=== PATIENT | male | born 1955 | race Caucasian/White ===

== ENCOUNTER → 2017-10-06 07:48 | Day surgery (SDC) | payer BC ==
[~2017-10-06 07:48] MED LIST: Diazepam TAB(*) 5 MG ONE; Heparin 2 UNITS/ML IVPREMIX* 3,000 ML IV ONE; Iohexol 350 (CONTRAST) 200 ML MDV IV ONE; Lidocaine 1% INJ* 10 MG/ML 30 ML SDV ONE; Midazolam* 1 MG/ML 10 ML VIAL (10 MG) ONE; NS 0.9% 1000 ML* 1,000 ML IV SCH; diPHENhydraMINE PO* 25 MG ONE; fentaNYL* 50 MCG/ML 2 ML VIAL (100 MCG VIAL) ONE
[2017-10-06 13:01] VITALS: BP 131/73
--- NOTE | 2017-10-07 04:49 | CATH ---
CC: Dr. Edgard Mathias, [facility] Cardiothoracic Surgery Department * CARDIAC CATHETERIZATION REPORT: DATE OF PROCEDURE: 10/06/17 - [facility] CATH PROCEDURE: Cardiac catheterization including left ventriculogram, coronary angiography. INDICATION: Mitral regurgitation, mitral valve prolapse. The patient is a 62-year-old gentleman with a history of mitral valve prolapse, who now has severe mitral regurgitation and left atrial enlargement. Cardiac catheterization was recommended prior to mitral valve repair. DESCRIPTION OF PROCEDURE: The patient was brought to the catheterization lab in a fasting state. Informed consent had been obtained prior to the procedure. All labs had been reviewed. The patient was placed supine on the catheterization table. Both femoral areas were cleaned and draped in the usual fashion. 1% lidocaine was used for local anesthesia. The right femoral artery was entered via modified Seldinger technique and a 6-Jamaican sheath introducer was placed. The patient underwent left ventriculogram and coronary angiography using a 6-Jamaican pigtail catheter, 6-Jamaican JL5 catheter, and a 6-Jamaican JR4 catheter. At the end of the procedure , an angiogram of the femoral artery demonstrated normal position and a Mynx closure device was deployed. The patient tolerated the procedure well and no complications. A total of 2.6 minutes of fluoro time was used. A total of 80 cc of Omnipaque dye was used. FINDINGS: HEMODYNAMICS: Central aortic blood pressure 112/65 with a mean of 87, left ventricular pressure 112/2 within an end-diastolic pressure of 16. LEFT VENTRICULOGRAM: Left ventricle was normal in size and systolic function, estimated ejection fraction of 65%. There was obvious mitral valve prolapse with 3 to 4+ mitral regurgitation. The aortic valve and ascending aorta appeared normal. CORONARY ARTERIES: 1. Left main: The left main was normal in size. It bifurcated into the LAD and circumflex. There was no evidence of stenosis. 2. Left anterior descending artery: LAD was normal in size. It gave off 1 diagonal branch. There was no evidence of stenosis. 3. Left circumflex artery: The circumflex artery was normal in size. It gave off 2 obtuse marginal branches. There was no evidence of stenosis. 4. Right coronary artery: The RCA is a large dominant vessel. It gave off the PDA and 2 posterolateral branches. There was no evidence of stenosis. IMPRESSION: 1. Normal LV size and systolic function. 2. Mitral valve prolapse with 3 to 4 plus mitral regurgitation. 3. Normal coronary arteries. 4. Mynx closure device to the right femoral artery. RECOMMENDATION: The patient will be evaluated for mitral valve repair. [id number]/[facility] #: [id number] SAMANTA
== END | disposition home or self-care (01) ==
LOC: CHICATH 09-28 07:36
PROVIDERS: ATTEND Specialist
DX: I34.1 Nonrheumatic mitral (valve) prolapse (principal); I34.0 Nonrheumatic mitral (valve) insufficiency; K21.9 Gastro-esophageal reflux disease without esophagitis; Z87.891 Personal history of nicotine dependence; Z95.5 Presence of coronary angioplasty implant and graft
CPT/HCPCS: 93458; 99156; 99157; A9270-GY; C1760; C1887; J1644; J2250; J3010